=== PATIENT | female | born 1965 | race Caucasian/White ===

== ENCOUNTER 2021-04-13 11:44 | Inpatient (IN) | payer OTHER ==
[2021-04-13] MEDS ORDERED: ACETAMINOPHEN 1000 MG/100 ML VIAL (NON FORMULARY) IVPB ONE (13:34)
[2021-04-13] MEDS ORDERED: VANCOMYCIN 1,000 MG in DEXTROSE 5%-WATER - 250 ML IVPB ONE (13:35)
[2021-04-13] MEDS ORDERED: ACETAMINOPHEN INJECTION 100 ML IVPB ONE (13:45)
[2021-04-13] MEDS ORDERED: VANCOMYCIN 1 GRAM (PRE-DOCKED) 1,000 MG/250 ML BAG IVPB ONE (13:45)
[2021-04-13 14:45] LABS: BASO % 0.5 % (0-2.0); EOS % 1.7 % (0-4.5); HEMATOCRIT 43.3 % (32.4-45.2); LYMPH % 28.9 % (8-40); MCH 30.2 pg (25.7-33.7); MCHC 34.6 g/dl (32.0-36.0); MEAN CELL VOLUME 87.2 fl (80-96); MONO % 7.8 % (3.8-10.2); NEUT % 61.1 % (42.8-82.8); PLATELET COUNT 197 10^3/uL (134-434); RBC 4.97 M/mm3 (3.60-5.2); RDW 13.2 % (11.6-15.6); WHITE BLOOD COUNT 5.9 K/mm3 (4.0-10.0)
[2021-04-13 15:11] LABS: CHLORIDE 106 mmol/L (98-107); SODIUM 139 mmol/L (136-145)
[2021-04-13 15:13] LABS: CALCIUM 9.6 mg/dL (8.5-10.1)
[2021-04-13 15:14] LABS: ALBUMIN 4.2 g/dl (3.4-5.0); ANION GAP 9 MMOL/L (8-16); CO2 24 mmol/L (21-32); GLUCOSE,RANDOM 82 mg/dL (74-106)
[2021-04-13 15:17] LABS: CREATININE 0.9 mg/dL (0.55-1.3); SGOT/AST 27 U/L (15-37); SGPT/ALT 17 U/L (13-61)
[2021-04-13 15:18] LABS: BILIRUBIN,TOTAL 0.3 mg/dL (0.2-1); TOT PROT 8.5 g/dl (6.4-8.2)
[2021-04-13 15:19] LABS: LACTIC ACID 2.3 mmol/L (0.4-2.0)
[2021-04-13 15:20] LABS: ALK PHOS 107 U/L (45-117)
[2021-04-13 15:28] LABS: ERYTHROCYTE SEDIMENTATION RATE 19 mm/hr (0-30)
[2021-04-13] MEDS ORDERED: SODIUM CHLORIDE 1,000 ML IV STA (15:57)
[2021-04-13] MEDS ORDERED: PRAMIPEXOLE DIHYDROCHLORIDE 0.25 MG TABLET PO SCH (22:00)
[2021-04-13] MEDS: QUEtiapine FUMARATE 25 MG TABLET PO SCH (23:11)
[2021-04-13] MEDS: ACETAMINOPHEN 325 MG TABLET (FP) PO PRN (23:11)
[2021-04-13] MEDS: DIVALPROEX SODIUM 500 MG TABLET E.C. PO SCH ×2 (23:12→23:18)
[2021-04-13 23:59] VITALS: BMI 26.6
[2021-04-14] MEDS: VANCOMYCIN 1 GM in D5W (PRE-DOCKED) 1,000 MG/250 ML IVPB SCH ×3 (01:07→18:08)
[2021-04-14 09:55] LABS: HEMOGLOBIN 14.3 GM/dL (10.7-15.3); MCHC 34.2 g/dl (32.0-36.0); MEAN CELL VOLUME 87.9 fl (80-96); MEAN PLT VOLUME 9.4 fl (7.5-11.1); PLATELET COUNT 209 10^3/uL (134-434); RBC 4.77 M/mm3 (3.60-5.2); RDW 12.8 % (11.6-15.6)
[2021-04-14] MEDS: DIVALPROEX SODIUM 500 MG TABLET E.C. PO SCH ×3 (10:02→21:24)
[2021-04-14] MEDS: PRAMIPEXOLE DIHYDROCHLORIDE 0.25 MG TABLET PO SCH ×2 (10:02→10:27)
[2021-04-14] MEDS: QUEtiapine FUMARATE 25 MG TABLET PO SCH ×3 (10:03→21:25)
[2021-04-14] MEDS: ENOXAPARIN NA (PORCINE) 40 MG/0.4 ML DISP.SYRIN SQ SCH (10:03)
[2021-04-14 10:28] LABS: CALCIUM 9.8 mg/dL (8.5-10.1); INR 1.09 (0.83-1.09); PROTHROMBIN TIME (PATIENT) 13.4 SEC (9.7-13.0)
[2021-04-14 10:29] LABS: BLOOD UREA NITROGEN 6.4 mg/dL (7-18)
[2021-04-14 10:30] LABS: ACTIVATED PTT 39.2 SECONDS (25.2-36.5)
[2021-04-14 10:32] LABS: CREATININE 0.7 mg/dL (0.55-1.3)
[2021-04-14] MEDS: CARBIDOPA/LEVODOPA 25/250 TABLET (FP) PO SCH ×3 (14:21→21:24)
[2021-04-14] MEDS: VANCOMYCIN 1 GRAM (PRE-DOCKED) 1,000 MG/250 ML BAG IVPB SCH (20:36)
[2021-04-14] MEDS: ACETAMINOPHEN 325 MG TABLET (FP) PO PRN (20:36)
[2021-04-14] MEDS ORDERED: PT OWN MED DRAWER 7, Y5N ONE (21:08)
[2021-04-14] MEDS: PRAMIPEXOLE DIHYDROCHLORIDE 0.125 MG TABLET PO SCH (21:25)
[2021-04-15 08:14] LABS: BASO % 0.3 % (0-2.0); EOS % 3.8 % (0-4.5); HEMATOCRIT 40.8 % (32.4-45.2); HEMOGLOBIN 13.7 GM/dL (10.7-15.3); LYMPH % 35.5 % (8-40); MCHC 33.6 g/dl (32.0-36.0); MEAN CELL VOLUME 89.4 fl (80-96); MEAN PLT VOLUME 9.2 fl (7.5-11.1); MONO % 9.2 % (3.8-10.2); NEUT % 51.2 % (42.8-82.8); PLATELET COUNT 186 10^3/uL (134-434); RBC 4.57 M/mm3 (3.60-5.2); WHITE BLOOD COUNT 4.9 K/mm3 (4.0-10.0)
[2021-04-15 08:40] LABS: ALBUMIN 3.6 g/dl (3.4-5.0); BLOOD UREA NITROGEN 11.5 mg/dL (7-18); CALCIUM 9.3 mg/dL (8.5-10.1)
[2021-04-15 08:43] LABS: CREATININE 0.7 mg/dL (0.55-1.3)
[2021-04-15 08:46] LABS: BILIRUBIN,TOTAL 0.3 mg/dL (0.2-1); TOT PROT 7.4 g/dl (6.4-8.2)
[2021-04-15] MEDS: VANCOMYCIN 1 GRAM (PRE-DOCKED) 1,000 MG/250 ML BAG IVPB SCH ×2 (08:53→19:41)
[2021-04-15] MEDS: QUEtiapine FUMARATE 25 MG TABLET PO SCH ×2 (10:52→21:08)
[2021-04-15] MEDS: ENOXAPARIN NA (PORCINE) 40 MG/0.4 ML DISP.SYRIN SQ SCH (10:52)
[2021-04-15] MEDS: DIVALPROEX SODIUM 500 MG TABLET E.C. PO SCH ×2 (10:52→21:18)
[2021-04-15] MEDS: CARBIDOPA/LEVODOPA 25/250 TABLET (FP) PO SCH ×2 (10:52→21:19)
[2021-04-15] MEDS ORDERED: PT OWN MED DRAWER 7, Y5N ONE ×2 (10:54→20:48)
[2021-04-15] MEDS: PRAMIPEXOLE DIHYDROCHLORIDE 0.125 MG TABLET PO SCH ×2 (10:54→21:19)
[2021-04-16] MEDS: VANCOMYCIN 1 GRAM (PRE-DOCKED) 1,000 MG/250 ML BAG IVPB SCH (08:38)
[2021-04-16 09:45] LABS: BASO % 0.5 % (0-2.0); EOS % 2.9 % (0-4.5); HEMATOCRIT 38.7 % (32.4-45.2); HEMOGLOBIN 13.3 GM/dL (10.7-15.3); MCH 29.8 pg (25.7-33.7); MCHC 34.3 g/dl (32.0-36.0); MEAN CELL VOLUME 86.8 fl (80-96); MEAN PLT VOLUME 8.7 fl (7.5-11.1); NEUT % 60.6 % (42.8-82.8); PLATELET COUNT 185 10^3/uL (134-434); RBC 4.45 M/mm3 (3.60-5.2); RDW 12.9 % (11.6-15.6); WHITE BLOOD COUNT 5.6 K/mm3 (4.0-10.0)
[2021-04-16] MEDS: QUEtiapine FUMARATE 25 MG TABLET PO SCH (09:50)
[2021-04-16] MEDS: DIVALPROEX SODIUM 500 MG TABLET E.C. PO SCH (09:50)
[2021-04-16] MEDS: CARBIDOPA/LEVODOPA 25/250 TABLET (FP) PO SCH (09:50)
[2021-04-16] MEDS ORDERED: PT OWN MED DRAWER 7, Y5N ONE (09:59)
[2021-04-16 10:08] LABS: CALCIUM 9.4 mg/dL (8.5-10.1)
[2021-04-16] MEDS: PRAMIPEXOLE DIHYDROCHLORIDE 0.125 MG TABLET PO SCH (10:08)
[2021-04-16 10:09] LABS: ALBUMIN 3.5 g/dl (3.4-5.0); BLOOD UREA NITROGEN 11.5 mg/dL (7-18)
[2021-04-16 10:12] LABS: CREATININE 0.8 mg/dL (0.55-1.3)
[2021-04-16 10:13] LABS: BILIRUBIN,TOTAL 0.3 mg/dL (0.2-1)
[2021-04-16 10:14] LABS: TOT PROT 7.3 g/dl (6.4-8.2)
[2021-04-16] MEDS: ENOXAPARIN NA (PORCINE) 40 MG/0.4 ML DISP.SYRIN SQ SCH (10:29)
[2021-04-16 10:53] VITALS: BP 107/74; PULSE 61; TEMP 97.8
[2021-04-16] MEDS ORDERED: POTASSIUM CHLORIDE ORAL LIQUID 20 MEQ/15 ML PO ONE (15:52)
[2021-04-17] MEDS ORDERED: CLINDAMYCIN HCL 150 MG CAPSULE (FP) PO SCH (08:00)
== END 2021-04-16 17:43 | disposition home or self-care (01) | DRG 383 ==
LOC: JER 11:44 → JERBED 19:41 → J5S 22:46
PROVIDERS: ADMIT Internal Medicine; ATTEND Family Medicine
DX: L03.116 Cellulitis of left lower limb (principal); G20 Parkinson's disease; F32.9 Major depressive disorder, single episode, unspecified; Z88.0 Allergy status to penicillin; F39 Unspecified mood [affective] disorder
CPT/HCPCS: 36415; 73610-TC-LT-FY; 73630-TC-LT; 80048; 80053; 83605; 85025; 85027; 85610; 85651; 85730; 86140; 87040; 93005; 93010; 93971-TC; 99285-25; C9803; J0131; U0003; U0005